=== PATIENT | male | born 1950 | race Caucasian/White ===

== ENCOUNTER 2022-03-09 09:40 | Outpatient (CLI) | payer MEDICARE, OTHER, SELFPAY ==
--- NOTE | 2022-03-09 09:48 | ECHO_ITS ---
Patient Info Name: Chris Espinal Age: 72 years : 1950 Gender: Male Ht: 66 in Wt: 195 lbs BSA: 2.06 m2 HR: 84 bpm BP: 122 / 82 mmHg Technical Quality: Fair Exam Date: 03/09/2022 10:10 AM Exam Location: [facility] Pulmonary Patient Status: Outpatient Admit Date: 03/09/2022 Staff Ordering Physician: Misael Wu NP Vein Pumper: Keo Novak RDCS, RT Attending Provider: Misael Wu NP Referring Physician: Bryce CORONEL; Exam Type: CA echo doppler color flow Study Info Indications R60.0 - Localized edema Complete two-dimensional, color flow and Doppler transthoracic echocardiogram is performed. Strain analysis performed. Summary 1. Complete two-dimensional, color flow and Doppler transthoracic echocardiogram is performed. 2. Left ventricular chamber dimension is normal. 3. Left ventricular systolic function is normal, estimated at 60-65%. 4. There is mildly increased left ventricular wall thickness. 5. The left ventricular diastolic function is grade I diastolic dysfunction. 6. E/e' 12 is mildly elevated. 7. Global longitudinal strain is normal at -18.9%. Left Ventricle E/e' 12 is mildly elevated. Global longitudinal strain is normal at -18.9%. Left ventricular chamber dimension is normal. Left ventricular systolic function is normal, estimated at 60-65%. There is mildly increased left ventricular wall thickness. The left ventricular diastolic function is grade I diastolic dysfunction. Right Ventricle Right ventricular systolic function is normal and with normal TAPSE 2.4 cm. Right ventricular chamber dimension is normal. Left Atria Left atrial chamber dimension is normal. Right Atria Right atrial chamber dimension is normal. Aortic Valve The aortic valve is trileaflet. There is no aortic valve stenosis. There is no aortic valve regurgitation. Pulmonic Valve There is no pulmonic regurgitation. Mitral Valve There is no mitral valve stenosis. There is no mitral valve regurgitation. Tricuspid Valve There is no tricuspid valve regurgitation. Pericardium/Pleural There is no pericardial effusion. Inferior Vena Cava Normal inferior vena cava with >50% collapse upon inspiration consistent with normal right atrial pressure, 5 mmHg. Aorta The aortic root size at the sinus of Valsalva is normal. Left Ventricular Outflow Tract Name Value Normal LVOT 2D LVOT Diameter 2.1 cm LVOT Doppler LVOT Peak Gradient 11 mmHg LVOT Mean Gradient 6 mmHg LVOT VTI 34 cm LVOT VTI/AV VTI Ratio 1.0 LVOT Stroke Volume 114 ml LVOT CO 9.1 l/min LVOT CI 4.4 l/min/m2 Mitral Valve Name Value Normal MV Doppler
== END 2022-03-09 09:41 | disposition home or self-care (01) ==
LOC: ANHCARD 09:43
PROVIDERS: PCP Family Medicine; Visit Provider Nurse Practitioner Family
DX: R60.0 Localized edema (principal); I10 Essential (primary) hypertension
CPT/HCPCS: 93306

== ENCOUNTER → 2022-11-11 14:13 | Outpatient (CLI) | payer MEDICARE, OTHER, SELFPAY ==
--- NOTE | ~2022-11-11 | XR_ITS ---
EXAMINATION: XR chest 2V DATE: 11/11/2022 14:23 INDICATION: Cough, unspecified TECHNIQUE: PA and lateral views of the chest are obtained. COMPARISON: 05/17/2013 FINDINGS: The lungs are free of acute opacities. No pleural effusion or pneumothorax. The cardiomedia stinal silhouette is normal. There is moderate thoracic spondylosis. IMPRESSION: 1. No acute cardiopulmonary abnormality. Reviewed, dictated and finalized at location L. IC[employer] SUPPORT CONSULTANT
== END ==
PROVIDERS: PCP Family Medicine; Visit Provider Nurse Practitioner Family
DX: R05.9 Cough, unspecified (principal)
CPT/HCPCS: 71046

== ENCOUNTER 2023-05-18 11:52 | Emergency (ER) | payer MEDICARE, OTHER, SELFPAY ==
--- NOTE | ~2023-05-18 | XR_ITS ---
EXAMINATION: XR chest 2V DATE: 05/18/2023 12:32 INDICATION: Chest and back pain. Bronchitis. TECHNIQUE: PA and lateral views of the chest were obtained. COMPARISON: Chest radiograph dated 11/19/2022 FINDINGS: Unchanged mild lingular atelectasis along side a small left paracardial fat pad. No new airspace opac ities, pulmonary edema, pleural effusion or pneumothorax. Arch size is normal. Small calcified right infrahilar lymph node consistent with old granulomatous disease. Mild thoracic spondylosis. IMPRESSION: 1. Unchanged mild lingular atelectasis/scarring. No acute cardiopulmonary disease. Reviewed, dictated and finalized at location B. IMPRESSION: 1. Unchanged mild lingular atelectasis/scarring. No acute cardiopulmonary disea se.
--- NOTE | ~2023-05-18 | CT_ITS ---
EXAMINATION: CTA chest PE protocol DATE: 05/18/2023 19:30 INDICATION: Chest pain, back pain, pulmonary embolism TECHNIQUE: Computed tomography angiography (CTA) of the chest was performed with 100 mL Omnipaque-350 intravenous contrast timed to evaluate the pulmonary arteries. Coronal maximum intensity projection 3D-reconstructions were created by the technologist. The dose-length product (DLP) was 551.74 mGy-cm. Automated exposure control and iterative reconstruction technique were employed. COMPARISON: X-ray chest, same date and 11/11/2022; CT abdomen pelvis 12/26/2016. FINDINGS: Lung parenchyma and airways: Airways are clear. Dependent atelectasis. Bibasilar scar.. Pleura: Unremarkable. Thoracic inlet, axillae and chest wall: Unremarkable. Thoracic aorta: Normal. Mediastinum: Small hiatal hernia. Heart and pericardium: Normal. Coronary artery calcifications: Moderate. Upper abdomen: No significant finding. Bones: Moderate height loss at L2. Pulmonary arteries: Study quality: Adequate. No pulmonary emboli detected. IMPRESSION: No CT evidence of acute pulmonary embolus. Moderate L2 vertebral compression fracture, of uncertain age, correlate with pain/tenderness. Reviewed, dictated and finalized at location K. IMPRESSION: No CT evidence of acute pulmonary embolus. Moderate L2 vertebral compression fracture, of uncertain age, correlate with pa in/tenderness.
[2023-05-18 11:53] VITALS: BP 125/80; PULSE 98; RESP 16; TEMP 36.4; O2SAT 98
--- NOTE | 2023-05-18 11:53 | ECG_ITS ---
Measurements Intervals Mobile Rate: 102 P: 39 TX: 148 QRS: 0 QRSD: 90 T: 37 QT: 330 QTc: 431 Interpretive Statements SINUS TACHYCARDIA WITH OCCASIONAL VENTRICULAR PREMATURE COMPLEXES LOW QRS VOLTAGE IN PRECORDIAL LEADS [QRS DEFLECTION < 1.0 mV IN CHEST LEADS] ABNORMAL RHYTHM ECG NO PREVIOUS ECG AVAILABLE FOR COMPARISON Electronically Signed On 05-18-2023 14:23:33 CDT by Ti Stein M.D.
[2023-05-18 12:04] LABS: Basophils Percent Auto 0.6 % (0.2-1.2); Eosinophils Absolute Auto 0.1 K/mm3 (0-0.3); Eosinophils Percent Auto 0.9 % (0-4.4); Hematocrit 42.4 % (42.0-52.0); Immature Granulocyte Absolute 0.05 K/mm3 (0.00-0.031); Immature Granulocyte Percent A 0.7 % (0-0.5); Lymphocytes Absolute Auto 1.07 K/mm3 (0.9-3.2); Lymphocytes Percent Auto 15.8 % (18.3-44.2); Mean Corpuscular Hemoglobin 29.9 pg (26-34); Mean Corpuscular Volume 90.6 fl (80-100); Monocytes Absolute Auto 0.7 K/mm3 (0.1-0.6); Monocytes Percent Auto 10.8 % (2.6-8.5); Neutrophils Absolute Auto 4.8 K/mm3 (1.3-6.7); Neutrophils Percent Auto 71.2 % (45.5-73.1); Platelet Count Result 195 k/mm3 (150-375); Red Blood Count 4.68 M/mm3 (4.6-6.20); Red Cell Distribution Width 13.7 % (11.5-14.5); White Blood Count 6.8 K/mm3 (4.5-10.0)
[2023-05-18 12:14] LABS: Alanine Aminotransferase 23 U/L (6-50); Albumin Level 4.3 g/dL (3.5-5.1); Alkaline Phosphatase 74 U/L (38-126); Anion Gap 5 mmol/L (8-16); Aspartate Amino Transferase 23 U/L (17-59); Bilirubin,Total 1.2 mg/dL (0.2-1.3); Blood Urea Nitrogen 17 mg/dL (9-20); Calcium 9.1 mg/dL (8.4-10.2); Carbon Dioxide 27 mmol/L (22-30); Chloride 101 mmol/L (98-107); Estimated CRCL calculation 40 ml/min; Estimated Glomerular Filt Rate 43; Glucose 138 mg/dL (65-110); Lipase 45 U/L (23-300); Potassium 3.9 mmol/L (3.4-5.0); Sodium 133 mmol/L (137-145)
[2023-05-18 12:15] LABS: INR 1.1; Prothrombin Time 14.6 Seconds (11.1-14.7)
[2023-05-18 12:16] LABS: Partial Thromboplastin Time 35.1 SECONDS (22.3-36.8)
[2023-05-18 12:25] LABS: Troponin I < 0.012 ng/mL (0.000-0.034)
[2023-05-18 15:06] LABS: Troponin I < 0.012 ng/mL (0.000-0.034)
--- NOTE | 2023-05-18 15:38 | ED.GENADULT ---
HPI - General Adult General Chief complaint: Chest Pain Stated complaint: chest pain Time Seen by Provider: 05/18/23 14:49 Source: patient and family Mode of arrival: ambulatory Limitations: no limitations History of Present Illness HPI narrative: 73 years old white male brought to the emergency room by his complaining of productive cough of colored sputum, sneezing for over 1 week. Patient report left chest pain and left upper back pain with anytime he coughs or sneeze and certain movement. He denies any fever, chills, nausea, vomiting, trouble breathing. Patient been taking Aleve and inhaler lately, started 3 days ago on antibiotic for bronchitis. Patient does not smoke or drink or uses drugs, Related Data Home Medications Medication Instructions Recorded Confirmed aspirin 81 mg tablet,delayed 81 mg PO DAILY 12/22/22 12/23/22 release cholecalciferol (vitamin D3) 25 25 mcg PO DAILY 12/22/22 12/23/22 mcg (1,000 unit) capsule cyanocobalamin (vitamin B-12) 1,000 mcg PO DAILY 12/22/22 12/23/22 1,000 mcg capsule [id number] 120 mcg-lutein tablet PO 12/22/22 12/23/22 150 mcg-herb 50 mg chewable tablet (Alive Men's 50 Plus Multivitamin) Allergies Allergy/AdvReac Type Severity Reaction Status Date / Time No Known Allergies Allergy Verified 12/22/22 14:51 Review of Systems Review of Systems: All systems reviewed & are unremarkable except as noted in HPI and below PMFSH Past Medical History Medical History BMI 30.0-30.9,adult BMI 32.0-32.9,adult COVID Edema FH: cholecystectomy Family History Family History Sibling Family history of thyroid disease Mother Family history of malignant neoplasm Leukemia Father Heart disease Other Diabetes mellitus Family history of allergic disorder Family history of cardiovascular disease Family history of tuberculosis Social History Social History Smoking status: Never smoker Second hand tobacco smoke exposure: Yes Alcohol intake: current Substance use: never Substance use type: does not use Lack of Transportation: YES Lack of Food: Never True Current Housing: I Have Housing Concerned About Future Housing: No Difficulty Paying Gas/Electric Bills: No Difficulty Paying for Meds: No Currently Unemployed: No Education: High School Diploma/GED Difficulty w/ Childcare or Family Care: No Living arrangements: with family Occupation/Education: retired Additional occupation/education comments: [employer] Gender identity (if verbalized by the patient): Male Exam Narrative: General appearance: Well-developed, well-nourished Skin: Normal color Head: Normocephalic, nontraumatic Eyes: Clear conjunctiva ENT: Oropharynx normal, ears normal, nose normal Neck: Supple, nontender Chest and respiratory: Airway patent, no respiratory distress, no accessory muscle use Heart: Regular rate/rhythm Abdomen: Soft, nontender, no organomegaly, quiet bowel sounds Vascular: Normal peripheral pulses, normal capillary refill. Musculoskeletal: Normal range of motion, nontender back Neurologic: Alert and oriented ?3, [employer] is normal as tested, no gross motor deficit Course Vital Signs Vital signs: Vital Signs Temperature 36.4 C 05/18/23 11:53 Pulse Rate 98 05/18/23 11:53 Respiratory Rate 16 05/18/23 11:53 Blood Pressure 125/80 05/18/23 11:53 Pulse Oximetry 98 05/18/23 11:53 Oxygen Delivery Room Air 05/18/23 11:53 Temperature 36.8 C 05/18/23
[2023-05-18 16:20] LABS: D Dimer 0.74 ug/mL (<0.48)
[2023-05-18] MEDS: ASPIRIN 81 MG CHEWABLE TABLET 324 MG PO (18:23)
[2023-05-18 18:24] LABS: Troponin I < 0.012 ng/mL (0.000-0.034)
[2023-05-18 19:38] VITALS: O2SAT 95
[2023-05-18 19:40] VITALS: O2SAT 91
[2023-05-18 19:42] VITALS: BP 134/85; PULSE 89; PULSE 90; RESP 17; TEMP 36.8; O2SAT 93
== END 2023-05-18 20:12 | disposition home or self-care (01) ==
PROVIDERS: Emergency Provider Emergency Medicine; PCP Family Medicine
DX: J40 Bronchitis, not specified as acute or chronic (principal); R07.89 Other chest pain; Z86.16 Personal history of COVID-19; Z77.22 Contact with and (suspected) exposure to environmental tobacco smoke (acute) (chronic); Z79.82 Long term (current) use of aspirin; R00.0 Tachycardia, unspecified; I49.3 Ventricular premature depolarization
CPT/HCPCS: 36415; 71046; 71275; 80053; 83690; 84484; 85025; 85380; 85610; 85730; 93005; 99284; A9270; Q9967

== ENCOUNTER 2023-05-19 10:38 | Emergency (ER) | payer MEDICARE, OTHER, SELFPAY ==
--- NOTE | ~2023-05-19 | CT_ITS ---
Non-contrast CT scan of the Abdomen and Pelvis Clinical indication: Flank pain Technique: 2.5 mm axial scans were obtained through the abdomen and pelvis without intravenous or or al contrast. Dose reduction technique was used on this scan by utilizing automated exposure control a nd iterative reconstruction technique. The dose-length product (DLP) was 634.38 mGy-cm. Findings: Images through the lung bases reveal no abnormalities. 7 mm nonobstructing left renal stone present. No definite right renal stone. There is excreted contra st internal and the ureters from recent contrast-enhanced chest CT, which limits evaluation for urete ral stone. The liver, spleen, pancreas, and adrenals appear normal. Gallbladder is absent. There are atheroscler otic calcifications of the aorta. There is no evidence of bowel obstruction. Images through the pelvis were performed. There is no evidence of ascites or lymphadenopathy. Urinary bladder unremarkable. Prostate gland and seminal vesicles are unremarkable. There is burst fracture of L2, which appears to be likely acute. Impression: Acute L2 burst fracture. 7 mm nonobstructing left renal stone. Suboptimal evaluation for ureteral stone as there is excreted contrast in the ureters. No hydronephro sis or definite stones seen however. Reviewed, dictated and finalized at location . Impression: Acute L2 burst fracture. 7 mm nonobstructing left renal stone. Suboptimal evaluation for ureteral stone as there is excreted contrast in the u reters. No hydronephrosis or definite stones seen however.
[2023-05-19 10:42] VITALS: BP 142/79; PULSE 99; RESP 15; TEMP 37; O2SAT 99
[2023-05-19] MEDS: ACETAMINOPHEN 500 MG TABLET 1000 MG PO (12:46)
[2023-05-19] MEDS: LIDOCAINE 5% PATCH 1 PATCH TRANSDERM (12:47)
[2023-05-19 13:09] LABS: Anion Gap 5 mmol/L (8-16); Blood Urea Nitrogen 17 mg/dL (9-20); Calcium 9.6 mg/dL (8.4-10.2); Carbon Dioxide 28 mmol/L (22-30); Chloride 99 mmol/L (98-107); Estimated CRCL calculation 40 ml/min; Estimated Glomerular Filt Rate 43; Glucose 109 mg/dL (65-110); Potassium 4.3 mmol/L (3.4-5.0); Sodium 132 mmol/L (137-145)
[2023-05-19 13:24] LABS: Add Urine Microscopic? YES; Appearance Urine Clear (Clear); Bacteria Urine None Seen /hpf; Bilirubin Urine Negative (Negative); Blood Urine 1+ (Negative); Color Urine Dark Yellow (Yellow); Glucose Urine UA Negative (Negative); Hyaline Casts Urine Present /lpf; Ketones Urine Negative (Negative); Leukocyte Esterase Ur Trace LEU/UL (Negative); Need Manual Microscopic Reviewed; Nitrate Urine Negative (Negative); Protein Urine 2+ mg/dL (Negative); RBC Urine 0-2 /hpf (0-2); Specific Grav Ur 1.026 (1.001-1.035); Squamous Epithelial Cell Urine None seen /hpf (Few); Urobilinogen Urine 0.2 mg/dL (<2.0); WBC Urine 0-5 /hpf; pH Urine 5.5 (5.0-9.0)
--- NOTE | 2023-05-19 15:04 | ED.BACK ---
HPI - Back Pain/Injury General Chief Complaint: Back Pain/Injury Stated Complaint: wants kidneys instrument checker Time Seen by Provider: 05/19/23 11:48 History of Present Illness HPI Narrative: This is a 73-year-old male, seen here yesterday, who returns to the emergency department for persistent back pain. The patient describes his pain as sharp and burning across the middle back without radiation, rated 3/10 at minimum and 6/10 at maximum. He denies loss of sensation in the groin, bowel or bladder incontinence or lower extremity weakness. Related Data Home Medications Medication Instructions Recorded Confirmed aspirin 81 mg tablet,delayed 81 mg PO DAILY 12/22/22 12/23/22 release cholecalciferol (vitamin D3) 25 25 mcg PO DAILY 12/22/22 12/23/22 mcg (1,000 unit) capsule cyanocobalamin (vitamin B-12) 1,000 mcg PO DAILY 12/22/22 12/23/22 1,000 mcg capsule [id number]-[id number] 120 mcg-lutein tablet PO 12/22/22 12/23/22 150 mcg-herb 50 mg chewable tablet (Alive Men's 50 Plus Multivitamin) Allergies Allergy/AdvReac Type Severity Reaction Status Date / Time No Known Allergies Allergy Verified 12/22/22 14:51 Review of Systems Review of Systems: CONSTITUTIONAL: Denies fever, chills, or sweats. CARDIOVASCULAR: Denies chest pain, palpitations, or edema. RESPIRATORY: Denies cough or dyspnea. GASTROINTESTINAL: Denies abdominal pain, nausea, vomiting, or diarrhea. GENITOURINARY: Denies dysuria or hematuria. MUSCULOSKELETAL: Back pain denies joint pain, or myalgia. NEUROLOGIC: Denies headache, numbness, dizziness, or weakness. PSYCHIATRIC: Denies anxiety or depression. [facility] Past Medical History Medical History BMI 30.0-30.9,adult BMI 32.0-32.9,adult COVID Edema FH: cholecystectomy Family History Family History Sibling Family history of thyroid disease Mother Family history of malignant neoplasm Leukemia Father Heart disease Other Diabetes mellitus Family history of allergic disorder Family history of cardiovascular disease Family history of tuberculosis Social History Social History Smoking status: Never smoker Second hand tobacco smoke exposure: Yes Alcohol intake: current Substance use: never Substance use type: does not use Lack of Transportation: YES Lack of Food: Never True Current Housing: I Have Housing Concerned About Future Housing: No Difficulty Paying Gas/Electric Bills: No Difficulty Paying for Meds: No Currently Unemployed: No Education: High School Diploma/GED Difficulty w/ Childcare or Family Care: No Living arrangements: with family 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 There is also a left-sided renal, nonobstructing 7 mm stone with small amount of blood noted on UA but no changes concerning for UTI. The patient's creatinine is stable at 1.6 with a sodium of 132. Will discharge with pain medications and referral to spine surgery. Vital Signs Vital signs: Vital Signs Temperature 98.6 F 05/19/23 10:42 Pulse Rate 99 05/19/23 10:42 Respiratory Rate 15 05/19/23 10:42 Blood Pressure 142/79 H 05/19/23 10:42 Pulse Oximetry 99 05/19/23 10:42 Oxygen Delivery Room Air 05/19/23 10:42 Temperature 98.6 F 05/19/23 10:42 Pulse Rate 99 05/19/23 10:42 Respiratory Rate 15 05/19/23 10:42 Blood Pressure 142/79 H 05/19/23 10:42 Pulse Oximetry 99 05/19/23 10:42 Oxygen Delivery Room Air 05/19/23 10:42 MDM - Back Pain/Injury MDM Narrative Medical decision making narrative: Plan: Labs, imaging, pain control, reassess Differential D
== END 2023-05-19 15:34 | disposition home or self-care (01) ==
PROVIDERS: Emergency Provider Preventive Medicine Aerospace Medicine; PCP Family Medicine
DX: S32.021A Stable burst fracture of second lumbar vertebra, initial encounter for closed fracture (principal); N20.0 Calculus of kidney; Z86.16 Personal history of COVID-19; Z79.82 Long term (current) use of aspirin; X58.XXXA Exposure to other specified factors, initial encounter
CPT/HCPCS: 36415; 74176; 80048; 81001; 99284; A9270

== ENCOUNTER → 2023-06-03 12:32 | Outpatient (CLI) | payer MEDICARE, OTHER, SELFPAY ==
--- NOTE | ~2023-06-03 | MR_ITS ---
EXAMINATION: MR lumbar spine wo con DATE: 06/03/2023 13:07 INDICATION: Wrist fracture of lumbar vertebra, closed. Low back pain. TECHNIQUE: Magnetic resonance imaging (MRI) of the lumbar spine was performed without intravenous con trast. Sequences included sagittal T2-weighted FSE, sagittal T2-weighted FS FSE, sagittal T1-weighted FSE, and axial T2-weighted FSE. COMPARISON: CT abdomen and pelvis 05/19/2023 FINDINGS: Bone alignment is normal. There is a burst fracture of L2 with 3/5 loss of height centrally , edema-like marrow signal intensity, and low signal fracture lines. There is mildly decreased disc h eight at L3-L4. The distal spinal cord signal intensity is normal. The conus medullaris is at L1-L2. The following disc levels are specifically discussed: L1-L2: The disc is bulging. There is mild bilateral facet joint osteoarthritis. There is mild bilater al neural foraminal stenosis. There is no central canal stenosis. L2-L3: The disc is bulging. There is mild bilateral facet joint osteoarthritis. There is moderate rig ht and mild left neural foraminal stenosis. There is no central canal stenosis. L3-L4: The disc is bulging. There is moderate bilateral facet joint osteoarthritis. There is moderate right and mild left neural foraminal stenosis. There is mild central canal stenosis. L4-L5: The disc is bulging and has an annular fissure. There is mild right and moderate left facet guicho int osteoarthritis. There is moderate right and mild left neural foraminal stenosis. There is mild ce ntral canal stenosis. L5-S1: The disc is bulging. There is moderate bilateral facet joint osteoarthritis. There is mild mazin ateral neural foraminal stenosis. There is mild central canal stenosis. IMPRESSION: 1. Acute/subacute L2 burst fracture, worsened from 05/19/2023. 2. Moderate lumbar spondylosis. Reviewed, dictated and finalized at location A.
== END ==
DX: S32.021D Stable burst fracture of second lumbar vertebra, subsequent encounter for fracture with routine healing (principal); X58.XXXD Exposure to other specified factors, subsequent encounter; M47.896 Other spondylosis, lumbar region
CPT/HCPCS: 72148

== ENCOUNTER → 2023-10-12 13:35 | Outpatient (CLI) | payer MEDICARE, OTHER, SELFPAY ==
--- NOTE | ~2023-10-12 | XR_ITS ---
XR shoulder RT min 2V DATE: 10/12/2023 13:54 INDICATION: Right shoulder pain TECHNIQUE: 4 views COMPARISON: None FINDINGS: There is diffuse osteopenia. No fracture or dislocation, periosteal reaction or bone destruction or abnormal soft tissue calcifica tion of the right shoulder is detected. IMPRESSION: Osteopenia Reviewed, dictated and finalized at location B. R[employer] ARTIST TECHNICAL IMPRESSION: Osteopenia
== END ==
PROVIDERS: PCP Nurse Practitioner Family; Visit Provider Nurse Practitioner Family
DX: M25.511 Pain in right shoulder (principal); M85.811 Other specified disorders of bone density and structure, right shoulder
CPT/HCPCS: 73030

== ENCOUNTER 2024-01-20 11:36 | Outpatient (CLI) | payer MEDICARE, OTHER, SELFPAY ==
--- NOTE | ~2024-01-20 | XR_ITS ---
XR lumbar spine 2-3V DATE: 01/20/2024 11:53 INDICATION: Burst fracture TECHNIQUE: AP, lateral, coned lateral lumbosacral views COMPARISON: 06/03/2023 MRI lumbar spine FINDINGS: There is diffuse osteopenia. Status post vertebroplasty at fractures of L1 and L2, each with prominent loss of height and anterior wedging. There is mild compression fracture deformity of L3 and moderate biconcave fracture deformity of L4. No spondylolisthesis. The included lower thoracic and lumbar pedicles are intact. The sacral joints are intact. IMPRESSION: Prominent osteopenia Status post vertebroplasty at L1 and L2 fractures L3 and L4 compression fractures Reviewed, dictated and finalized at location A.
== END 2024-01-20 11:37 ==
LOC: MICIMG 11:38
PROVIDERS: PCP Nurse Practitioner Family; Visit Provider Nurse Practitioner Family
DX: M85.88 Other specified disorders of bone density and structure, other site (principal); S32.030D Wedge compression fracture of third lumbar vertebra, subsequent encounter for fracture with routine healing; S32.040D Wedge compression fracture of fourth lumbar vertebra, subsequent encounter for fracture with routine healing; X58.XXXD Exposure to other specified factors, subsequent encounter
CPT/HCPCS: 72100

== ENCOUNTER 2024-02-07 07:09 | Outpatient (CLI) | payer MEDICARE, OTHER, SELFPAY ==
--- NOTE | ~2024-02-07 | MR_ITS ---
MRI of the lumbar spine Clinical History: Compression fracture Technique: Axial T2-weighted images, and sagittal T1-weighted, T2-weighted, and and T2 fat-sat images were acquired. COMPARISON: 06/03/2023 Findings: There is severe compression fracture deformities of L1 and L2, chronic, with vertebroplasty cement present. There is also severe compression fracture of L4, likely late subacute, with signific ant loss of height and probably minimal residual marrow edema. Probable acute compression fracture of T10 is present, with suspected loss of height and diffuse marrow edema, however this is incompletely included in the [id number]. There is a 4.0 x 4.0 cm bony lesion centered at the posterior left iliac bone near the SI joint, with cortical destruction and extension. The adjacent soft tissues (axial T2-weighted image 6). There are 2 additional much smaller suspected osseous lesions, one in the left sacrum measuring 9 mm in diamet er (axial image 31), and one in the more anterior left iliac bone adjacent to the SI joint, measuring 0.8 cm (axial image 33). At L1-L2, there is mild disc bulge and minimal retropulsion of the vertebral bodies. There is advance d facet arthropathy. There is no keyla central canal stenosis. There is moderate left neural foramina l narrowing and severe right neural foraminal narrowing. L2-L3, there is minimal disc bulge and moderate to advanced facet arthropathy. No central canal steno sis. There is severe bilateral neural foraminal narrowing. L3-L4, there is disc bulge and advanced facet arthropathy. There is minimal central canal stenosis. T here is severe bilateral neural foraminal narrowing. At L4-L5, there is disc bulge and moderate facet arthropathy. No central canal stenosis. There is sev ere bilateral neural foraminal narrowing. At L5-S1, there is mild disc bulge and advanced facet arthropathy. No central canal stenosis. There i s severe bilateral neural foraminal narrowing. Paravertebral soft tissues are otherwise unremarkable. Impression: 4 cm destructive bony lesion centered in the posterior left iliac bone, as detailed above, highly mamta picious for metastatic lesion. 2 additional much smaller, subcentimeter metastatic lesions are suspec omaira at the left iliac bone and left sacrum, as detailed above as well. Metastatic/malignancy workup i s recommended. Probable acute compression fracture of T10, not completely included in the [id number]. Consider de dicated thoracic spine MR to further evaluate, as indicated. Probable late subacute to chronic compression fracture of L4, minimal residual marrow edema. Chronic compression fractures of L1 and L2 with vertebroplasty cement. Findings discussed with Dr. Thompson at the time of this reading. Reviewed, dictated and finalized at [facility]. Impression: 4 cm destructive bony lesion centered in the posterior left iliac bone, as deta iled above, highly suspicious for metastatic lesion. 2 additional much smaller, subcentimeter metastatic lesions are suspected at the left iliac bone and left sacrum, as detailed above as well. Metastatic/malignancy workup is recommended . Probable acute compression fracture of T10, not completely included in the fiel d-of-view. Consider dedicated thoracic spine MR to further evaluate, as indicat ed. Probable late subacute to chronic compression fracture of L4, minimal residual marrow edema. Chronic compression fractures of L1 and L2 with vertebroplasty ce ment. Findings discussed with Dr. Thompson at the time of this reading.
== END 2024-02-07 07:10 ==
PROVIDERS: PCP Nurse Practitioner Family
DX: S32.000G Wedge compression fracture of unspecified lumbar vertebra, subsequent encounter for fracture with delayed healing (principal); X58.XXXD Exposure to other specified factors, subsequent encounter; M80.00XG Age-related osteoporosis with current pathological fracture, unspecified site, subsequent encounter for fracture with delayed healing
CPT/HCPCS: 72148

== ENCOUNTER 2024-02-10 13:23 | Outpatient (CLI) | payer MEDICARE, OTHER, SELFPAY ==
--- NOTE | ~2024-02-10 | MR_ITS ---
EXAMINATION: MR thoracic spine wo/w con DATE: 02/10/2024 14:17 INDICATION: Thoracic compression fractures TECHNIQUE: Magnetic resonance imaging (MRI) of the thoracic spine was performed without and with 17 m L Multihance intravenous contrast. Sagittal localizer T1-weighted FSE of the cervicothoracic spine wa s obtained. Sequences included sagittal T2-weighted FSE, sagittal T2-weighted FS FSE, sagittal T1-shae ghted FSE and axial T1-weighted SE. Postcontrast sequences included axial T2-weighted FSE, sagittal T 1-weighted FS FSE, and axial T1-weighted FS SE. COMPARISON: Lumbar spine MR dated 02/07/2024 and 06/03/[address] chest dated 05/28/23 FINDINGS: Alignment is normal.Again seen are recentL1 and L2 compression fractures the former with 40%anterior to central vertebral body height loss and the latter with up to 80% central vertebral body height los s. There are some regions of very low signal intensity within both compression fractures which sugges ts possible prior vertebral plasties. There is a more [id number] compression fracture which was presen t at the time of the most recent prior MRI but was not evident on study dated 06/03/2023. There is jessenia roximately 20% central vertebral body height loss. There is however loss of T1 marrow fat signal with corresponding enhancement in the anterior two thirds of the vertebral body suspicious for an underly ing likely metastatic bone lesion as a large lytic bone lesions identified on the prior study at the left posterior iliac spine. There is an additional T1 hypointense enhancing bone lesion at the anteri or third of the T6 vertebral body. There are couple subcentimeter T1 hypointense enhancing lesions at the left and right posterior aspects of the T12 vertebral body. Remaining thoracic vertebral body he ights are normal with otherwise normal marrow signal. There is moderate spondylosis partially visuali zed at C6-C7. There is multilevel mild disc height loss throughout the thoracic spine. A small centra l disc protrusions result in mild central canal stenosis at T9-T10 through T11-T12 1 diffuse mild dis c bulges also with mild central canal stenosis at T12-L1 and L1-L2. There is bilateral multilevel tho racic facet osteoarthritis generally of mild to moderate severity in the upper thoracic spine and mod erate to severe in the lower thoracic spine. This contributes to severe neural foraminal stenosis on the right at T11-T12, of moderate severity bilaterally at T9-T10 and T10-T11 and with mild neural fro m stenosis at several of the more cephalad foramina on both the left and right. There is normal spina l cord signal. No abnormally enhancing cord lesions. There are small posterior layering bilateral ple ural effusions. There is expansile mass at the posterolateral left rib which is only visualized on th e axial T2-weighted images also suspicious for metastatic disease. IMPRESSION: 1. Several enhancing bone lesions including an expansile lesion of the left sixth rib suspicious for metastatic disease. 2. Relatively recent likely pathologic T10 compression fracture with additional chronic compression f ractures at L1 and L2 the latter potentially with prior vertebral plasties. 3. Mild thoracic spondylosis. Reviewed, dictated and finalized at location A. IMPRESSION: 1. Several enhancing bone lesions including an expansile lesion of the left six th rib suspicious for metastatic disease. 2. Relatively recent likely pathologic T10 compression fracture with additional chronic compression fractures at L1 and L2 the latter potentially with prior v ertebral plasties. 3. Mild thoracic spondylosis.
== END 2024-02-10 13:24 ==
LOC: MICIMG 13:24
PROVIDERS: PCP Nurse Practitioner Family
DX: M89.8X9 Other specified disorders of bone, unspecified site (principal); S22.000A Wedge compression fracture of unspecified thoracic vertebra, initial encounter for closed fracture; X58.XXXA Exposure to other specified factors, initial encounter; M47.894 Other spondylosis, thoracic region
CPT/HCPCS: 72157; A9577